=== PATIENT | male | born 1990 | race African-American/Black ===

== ENCOUNTER 2018-02-21 18:47 | Emergency (ER) | payer SELFPAY ==
[~2018-02-21] VITALS: Ht 175.3 cm; Wt 75.0 kg
[2018-02-21 19:00] VITALS: BP 123/73
== END 2018-02-21 20:15 | disposition left against medical advice (07) ==
LOC: ER 19:11
DX: Z53.21 Procedure and treatment not carried out due to patient leaving prior to being seen by health care provider (principal)